=== PATIENT | male | born 1955 | race Caucasian/White ===

== ENCOUNTER 2021-05-05 20:29 | Inpatient (IN) | payer MEDICARE, OTHER ==
[~2021-05-05] VITALS: Ht 180.3 cm; Wt 173.1 kg
[2021-05-05] MEDS ORDERED: ALBUTEROL2.5 MG/3 M INH (22:28)
[2021-05-05] MEDS ORDERED: VITAMIN C 500500 MG PO (22:29)
[2021-05-05] MEDS ORDERED: IPRAT-ALBUT 0.5-3 ML INH (22:29)
[2021-05-05] MEDS ORDERED: LIPITOR20 MG PO (22:30)
[2021-05-05] MEDS ORDERED: ZINC OXIDE60 GM TP (22:31)
[2021-05-05] MEDS ORDERED: VITAMIN B-121000 MC3 GT (22:32)
[2021-05-05] MEDS ORDERED: DEXTROSE 50% SY50 ML INJ (22:33)
[2021-05-05] MEDS ORDERED: FEROSUL325 MG PO (22:34)
[2021-05-05] MEDS ORDERED: COLACE 100MG C100 MG PO (22:34)
[2021-05-05] MEDS ORDERED: HYDRALAZINE HCL50 MG PO (22:35)
[2021-05-05] MEDS ORDERED: HYDROCORT-PRAMO30 G1 PR (22:36)
[2021-05-05] MEDS ORDERED: LEVOTHYROXINE25 MC1 PO (22:37)
[2021-05-05] MEDS ORDERED: ISOSORBIDE MONO30 MG PO (22:37)
[2021-05-05] MEDS ORDERED: MELATONIN3 MG PO (22:39)
[2021-05-05] MEDS ORDERED: CLARITIN10 M2 PO (22:39)
[2021-05-05] MEDS ORDERED: KAPSPARGO SPRIN50 MG PO (22:40)
[2021-05-05] MEDS ORDERED: MONTELUKAST SOD10 MG PO (22:40)
[2021-05-05] MEDS ORDERED: MULTI-VITAMIN1 EACH PO (22:41)
[2021-05-05] MEDS ORDERED: CRANBERRY250 MG PO (22:42)
[2021-05-05] MEDS ORDERED: NYSTATIN15 GM TP (22:42)
[2021-05-05] MEDS ORDERED: SPS15 GM/60 M PO (22:44)
[2021-05-05] MEDS ORDERED: DAKIN'S473 ML MC (22:44)
[2021-05-05] MEDS ORDERED: ALLOPURINOL300 MG PO (22:46)
[2021-05-05] MEDS ORDERED: COZAAR 50MG TAB50 MG GT (22:46)
[2021-05-05 23:08] LABS: HEMOGLOBIN 8.6 gm/dl (14.0-17.5); RED BLOOD COUNT 3.19 M/UL (4.20-5.50); WHITE BLOOD COUNT 8.2 K/UL (4.5-11.0)
[2021-05-06 07:56] LABS: HEMOGLOBIN 8.8 gm/dl (14.0-17.5); RED BLOOD COUNT 3.27 M/UL (4.20-5.50)
[2021-05-07 02:31] LABS: HEMOGLOBIN 8.6 gm/dl (14.0-17.5); RED BLOOD COUNT 3.23 M/UL (4.20-5.50); WHITE BLOOD COUNT 7.6 K/UL (4.5-11.0)
[2021-05-07 20:29] LABS: HEMOGLOBIN 7.4 gm/dl (14.0-17.5)
[2021-05-08 04:53] LABS: HEMOGLOBIN 8.4 gm/dl (14.0-17.5); RED BLOOD COUNT 3.12 M/UL (4.20-5.50)
[2021-05-08 05:01] LABS: WHITE BLOOD COUNT 18.2 K/UL (4.5-11.0)
[2021-05-08 05:19] LABS: HBSAG SCREEN Negative (Negative); HEP A AB, IGM Negative (Negative); HEP B CORE AB, IGM Negative (Negative); HEP C VIRUS AB 0.1 (0.0-0.9)
[2021-05-08 11:38] LABS: HEMOGLOBIN 8.2 gm/dl (14.0-17.5)
[2021-05-08 20:03] LABS: HEMOGLOBIN 8.1 gm/dl (14.0-17.5)
[2021-05-09 05:21] LABS: HEMOGLOBIN 7.9 gm/dl (14.0-17.5); RED BLOOD COUNT 2.93 M/UL (4.20-5.50); WHITE BLOOD COUNT 14.9 K/UL (4.5-11.0)
[2021-05-10 05:04] LABS: HEMOGLOBIN 7.2 gm/dl (14.0-17.5); RED BLOOD COUNT 2.64 M/UL (4.20-5.50); WHITE BLOOD COUNT 11.6 K/UL (4.5-11.0)
[2021-05-11 02:38] LABS: HEMOGLOBIN 7.5 gm/dl (14.0-17.5); RED BLOOD COUNT 2.77 M/UL (4.20-5.50); WHITE BLOOD COUNT 11.1 K/UL (4.5-11.0)
[2021-05-11 11:01] LABS: BODY FLUID SOURCE PLEURAL
[2021-05-11 11:02] LABS: MONONUCLEAR CELLS 82 %; POLYMORPHONUCLEAR 18 %; RBC (AUTOMATED) 6900 10^6; WBC (AUTOMATED) 192 10^3
[2021-05-12 03:17] LABS: HEMOGLOBIN 7.6 gm/dl (14.0-17.5); RED BLOOD COUNT 2.78 M/UL (4.20-5.50); WHITE BLOOD COUNT 10.3 K/UL (4.5-11.0)
[2021-05-12 06:10] LABS: HBSAG SCREEN Negative (Negative); HEPATITIS B SURF AB QUANT <3.1 mIU/mL (Immunity>9.9)
[2021-05-13 03:46] LABS: HEMOGLOBIN 7.6 gm/dl (14.0-17.5); RED BLOOD COUNT 2.81 M/UL (4.20-5.50); WHITE BLOOD COUNT 10.7 K/UL (4.5-11.0)
[2021-05-14 05:23] LABS: HEMOGLOBIN 7.6 gm/dl (14.0-17.5); RED BLOOD COUNT 2.96 M/UL (4.20-5.50)
[2021-05-14 05:37] LABS: WHITE BLOOD COUNT 14.3 K/UL (4.5-11.0)
[2021-05-15 07:33] LABS: HEMOGLOBIN 7.3 gm/dl (14.0-17.5); WHITE BLOOD COUNT 13.5 K/UL (4.5-11.0)
[2021-05-15 07:34] LABS: RED BLOOD COUNT 2.65 M/UL (4.20-5.50)
[2021-05-16 02:58] LABS: HEMOGLOBIN 7.6 gm/dl (14.0-17.5); RED BLOOD COUNT 2.75 M/UL (4.20-5.50); WHITE BLOOD COUNT 12.1 K/UL (4.5-11.0)
[2021-05-17 10:28] LABS: HEMOGLOBIN 7.2 gm/dl (14.0-17.5); RED BLOOD COUNT 2.62 M/UL (4.20-5.50)
[2021-05-17 11:29] LABS: WHITE BLOOD COUNT 8.4 K/UL (4.5-11.0)
[2021-05-18 10:24] LABS: HEMOGLOBIN 7.3 gm/dl (14.0-17.5); RED BLOOD COUNT 2.71 M/UL (4.20-5.50); WHITE BLOOD COUNT 9.7 K/UL (4.5-11.0)
[2021-05-19 02:38] LABS: HEMOGLOBIN 7.1 gm/dl (14.0-17.5); RED BLOOD COUNT 2.6 M/UL (4.20-5.50); WHITE BLOOD COUNT 8.3 K/UL (4.5-11.0)
[2021-05-20 03:26] LABS: HEMOGLOBIN 7.4 gm/dl (14.0-17.5); RED BLOOD COUNT 2.78 M/UL (4.20-5.50); WHITE BLOOD COUNT 12.6 K/UL (4.5-11.0)
[2021-05-21 08:54] LABS: HEMOGLOBIN 7.8 gm/dl (14.0-17.5); RED BLOOD COUNT 2.77 M/UL (4.20-5.50); WHITE BLOOD COUNT 12.4 K/UL (4.5-11.0)
[2021-05-21 15:28] LABS: BODY FLUID SOURCE PLEURAL
[2021-05-21 15:29] LABS: MONONUCLEAR CELLS 89.3 (75-100); POLYMORPHONUCLEAR % 10.7 (0-25); RBC (AUTOMATED) 1600 (0-100000); WBC (AUTOMATED) 112 (0-500)
[2021-05-22 09:42] LABS: WHITE BLOOD COUNT 9.9 K/UL (4.5-11.0)
[2021-05-22 09:43] LABS: RED BLOOD COUNT 2.38 M/UL (4.20-5.50)
[2021-05-22 09:44] LABS: HEMOGLOBIN 6.5 gm/dl (14.0-17.5)
[2021-05-23 03:12] LABS: RED BLOOD COUNT 2.44 M/UL (4.20-5.50)
[2021-05-23 03:20] LABS: HEMOGLOBIN 6.6 gm/dl (14.0-17.5)
[2021-05-24 03:05] LABS: HEMOGLOBIN 8.9 gm/dl (14.0-17.5); RED BLOOD COUNT 3.18 M/UL (4.20-5.50); WHITE BLOOD COUNT 12.5 K/UL (4.5-11.0)
[2021-05-24 16:16] LABS: HEMATOCRIT 21.1 % (37.5-51.0)
[2021-05-25 04:37] LABS: HEMOGLOBIN 8.1 gm/dl (14.0-17.5); RED BLOOD COUNT 2.9 M/UL (4.20-5.50); WHITE BLOOD COUNT 9.6 K/UL (4.5-11.0)
[2021-05-25 17:12] LABS: HEPARIN INDUCED PLATELET AB 0.178 OD (0.000-0.400)
[2021-05-26 04:04] LABS: HEMOGLOBIN 7.6 gm/dl (14.0-17.5); RED BLOOD COUNT 2.87 M/UL (4.20-5.50); WHITE BLOOD COUNT 10.2 K/UL (4.5-11.0)
[2021-05-26 18:22] LABS: ADENOVIRUS F 40/41 Not Detected (Negative); ASTROVIRUS Not Detected (Negative); CAMPYLOBACTER Not Detected (Negative); CLOSTRIDIUM DIFFICILE TOX A/B Not Detected (Negative); CRYPTOSPORIDIUM Not Detected (Negative); E.COLI 0157 Not Detected (Negative); ENTAMOEBA HISTOLYTICA Not Detected (Negative); ENTEROAGGREGATIVE E.COLI (EAEC Not Detected (Negative); ENTEROPATHOGENIC E.COLI (EPEC) Not Detected (Negative); ENTEROTOXIGENIC E.COLI (ETEC) Not Detected (Negative); GIARDIA LAMBLIA Not Detected (Negative); NOROVIRUS GI/GII Not Detected (Negative); PLESIOMONAS SHIGELLOIDES Not Detected (Negative); ROTOVIRUS A Not Detected (Negative); SALMONELLA Not Detected (Negative); SAPOVIRUS Not Detected (Negative); SHIG/ENTEROINVAS.ECOLI (EIEC) Not Detected (Negative); SHIGA-LIK TOX.PRO.E.COLI (STEC Not Detected (Negative); VIBRIO Not Detected (Negative); VIBRIO CHOLERAE Not Detected (Negative); YERSINIA ENTEROCOLITICA Not Detected (Negative)
[2021-05-27 04:33] LABS: WHITE BLOOD COUNT 7.8 K/UL (4.5-11.0)
[2021-05-27 04:34] LABS: HEMOGLOBIN 6.9 gm/dl (14.0-17.5); RED BLOOD COUNT 2.53 M/UL (4.20-5.50)
[2021-05-28 04:10] LABS: HEMOGLOBIN 8.4 gm/dl (14.0-17.5)
[2021-05-28 04:12] LABS: RED BLOOD COUNT 3.12 M/UL (4.20-5.50)
[2021-05-28 12:50] LABS: HEMOGLOBIN 7.7 gm/dl (14.0-17.5)
[2021-05-28 20:36] LABS: HEMOGLOBIN 7.6 gm/dl (14.0-17.5)
[2021-05-29 07:36] LABS: HEMOGLOBIN 7.2 gm/dl (14.0-17.5); RED BLOOD COUNT 2.53 M/UL (4.20-5.50); WHITE BLOOD COUNT 11.4 K/UL (4.5-11.0)
[2021-05-30 03:20] LABS: HEMOGLOBIN 9.1 gm/dl (14.0-17.5); WHITE BLOOD COUNT 9.3 K/UL (4.5-11.0)
[2021-05-30 03:56] LABS: RED BLOOD COUNT 3.21 M/UL (4.20-5.50)
== END 2021-05-30 04:50 | disposition expired | DRG 673 ==
LOC: CCU 20:29 → PROG CARE 20:29 → CCU 05-07 18:31 → PROG CARE 05-09 14:49
PROVIDERS: Internal Medicine; Internal Medicine Nephrology; Registered Nurse; Surgery; ADMIT Internal Medicine
PROC: 5A0935A Assistance with Respiratory Ventilation, Less than 24 Consecutive Hours, High Flow/Velocity Cannula (ICD-10-PCS; 2021-05-06)
PROC: B24BZZ4 Ultrasonography of Heart with Aorta, Transesophageal (ICD-10-PCS; 2021-05-07)
PROC: 0BH17EZ Insertion of Endotracheal Airway into Trachea, Via Natural or Artificial Opening (ICD-10-PCS; 2021-05-07)
PROC: 5A1945Z Respiratory Ventilation, 24-96 Consecutive Hours (ICD-10-PCS; 2021-05-07)
PROC: 0B9P30Z Drainage of Left Pleura with Drainage Device, Percutaneous Approach (ICD-10-PCS; 2021-05-07)
PROC: 3E033XZ Introduction of Vasopressor into Peripheral Vein, Percutaneous Approach (ICD-10-PCS; 2021-05-07)
PROC: 5A1D70Z Performance of Urinary Filtration, Intermittent, Less than 6 Hours Per Day (ICD-10-PCS; 2021-05-07)
PROC: 30233N1 Transfusion of Nonautologous Red Blood Cells into Peripheral Vein, Percutaneous Approach (ICD-10-PCS; principal; 2021-05-07 14:34)
PROC: 0JH63XZ Insertion of Tunneled Vascular Access Device into Chest Subcutaneous Tissue and Fascia, Percutaneous Approach (ICD-10-PCS; 2021-05-07 14:34)
PROC: 5A1D70Z Performance of Urinary Filtration, Intermittent, Less than 6 Hours Per Day (ICD-10-PCS; 2021-05-08)
PROC: 5A1D70Z Performance of Urinary Filtration, Intermittent, Less than 6 Hours Per Day (ICD-10-PCS; 2021-05-09)
PROC: 5A1D70Z Performance of Urinary Filtration, Intermittent, Less than 6 Hours Per Day (ICD-10-PCS; 2021-05-10)
PROC: 5A1D70Z Performance of Urinary Filtration, Intermittent, Less than 6 Hours Per Day (ICD-10-PCS; 2021-05-11)
PROC: 02HV33Z Insertion of Infusion Device into Superior Vena Cava, Percutaneous Approach (ICD-10-PCS; 2021-05-15)
PROC: B548ZZA Ultrasonography of Superior Vena Cava, Guidance (ICD-10-PCS; 2021-05-15)
PROC: 5A09357 Assistance with Respiratory Ventilation, Less than 24 Consecutive Hours, Continuous Positive Airway Pressure (ICD-10-PCS; 2021-05-16)
PROC: 5A1D70Z Performance of Urinary Filtration, Intermittent, Less than 6 Hours Per Day (ICD-10-PCS; 2021-05-21)
PROC: 5A1D70Z Performance of Urinary Filtration, Intermittent, Less than 6 Hours Per Day (ICD-10-PCS; 2021-05-23)
PROC: 5A1D70Z Performance of Urinary Filtration, Intermittent, Less than 6 Hours Per Day (ICD-10-PCS; 2021-05-24)
PROC: 5A1D70Z Performance of Urinary Filtration, Intermittent, Less than 6 Hours Per Day (ICD-10-PCS; 2021-05-26)
PROC: 5A1D70Z Performance of Urinary Filtration, Intermittent, Less than 6 Hours Per Day (ICD-10-PCS; 2021-05-29)
DX: N17.0 Acute kidney failure with tubular necrosis (principal); A41.89 Other specified sepsis; L89.153 Pressure ulcer of sacral region, stage 3; J96.01 Acute respiratory failure with hypoxia; J18.9 Pneumonia, unspecified organism; R53.2 Functional quadriplegia; K57.91 Diverticulosis of intestine, part unspecified, without perforation or abscess with bleeding; J96.02 Acute respiratory failure with hypercapnia; I50.43 Acute on chronic combined systolic (congestive) and diastolic (congestive) heart failure; R65.21 Severe sepsis with septic shock; R57.0 Cardiogenic shock; J98.11 Atelectasis; I13.2 Hypertensive heart and chronic kidney disease with heart failure and with stage 5 chronic kidney disease, or end stage renal disease; E66.2 Morbid (severe) obesity with alveolar hypoventilation; D61.818 Other pancytopenia; D62 Acute posthemorrhagic anemia; J90 Pleural effusion, not elsewhere classified; I47.2 Ventricular tachycardia; E44.0 Moderate protein-calorie malnutrition; Z68.43 Body mass index [BMI] 50.0-59.9, adult; G93.49 Other encephalopathy; L97.829 Non-pressure chronic ulcer of other part of left lower leg with unspecified severity; L97.429 Non-pressure chronic ulcer of left heel and midfoot with unspecified severity; L97.419 Non-pressure chronic ulcer of right heel and midfoot with unspecified severity; Z66 Do not resuscitate; Z51.5 Encounter for palliative care; Z20.822 Contact with and (suspected) exposure to COVID-19; N18.6 End stage renal disease; E11.22 Type 2 diabetes mellitus with diabetic chronic kidney disease; G47.33 Obstructive sleep apnea (adult) (pediatric); K74.60 Unspecified cirrhosis of liver; E11.649 Type 2 diabetes mellitus with hypoglycemia without coma; K75.81 Nonalcoholic steatohepatitis (NASH); E87.5 Hyperkalemia; I48.0 Paroxysmal atrial fibrillation; E87.6 Hypokalemia; E03.9 Hypothyroidism, unspecified; L89.321 Pressure ulcer of left buttock, stage 1; L89.311 Pressure ulcer of right buttock, stage 1; E83.39 Other disorders of phosphorus metabolism; E78.5 Hyperlipidemia, unspecified; D69.6 Thrombocytopenia, unspecified; L89.221 Pressure ulcer of left hip, stage 1; M10.9 Gout, unspecified; E83.51 Hypocalcemia; L89.322 Pressure ulcer of left buttock, stage 2; L89.312 Pressure ulcer of right buttock, stage 2; L89.220 Pressure ulcer of left hip, unstageable; L89.310 Pressure ulcer of right buttock, unstageable; L89.150 Pressure ulcer of sacral region, unstageable; R79.1 Abnormal coagulation profile; I49.5 Sick sinus syndrome; D63.1 Anemia in chronic kidney disease; J44.9 Chronic obstructive pulmonary disease, unspecified; Z87.891 Personal history of nicotine dependence; Z99.81 Dependence on supplemental oxygen; Z86.73 Personal history of transient ischemic attack (TIA), and cerebral infarction without residual deficits; Z82.49 Family history of ischemic heart disease and other diseases of the circulatory system; Z99.2 Dependence on renal dialysis; Z74.01 Bed confinement status; Z79.01 Long term (current) use of anticoagulants; Z95.0 Presence of cardiac pacemaker
CPT/HCPCS: ECHO; 36415; 36430; 36600; 71045; 72220; 74018; 77001; 80048; 80053; 80069; 80074; 80202; 81001; 82140; 82272; 82533; 82550; 82553; 82607; 82728; 82747; 82803; 82962; 83540; 83550; 83605; 83735; 83880; 83921; 84100; 84132; 84439; 84443; 85014; 85018; 85025; 85027; 85610; 85652; 85730; 86140; 86317; 86850; 86900; 86901; 86920; 87040; 87070; 87077; 87086; 87186; 87205; 87340; 87507; 89050; 89051; 90935; 90937; 90947; 92610; 93005; 93306; 94002; 94003; 94640; 94660; 94664; 94760; 97161; 97167; A6212; C1729; C1750; C1752; C1769; C9113; J0295; J0610; J0690; J0696; J1100; J1642; J1644; J2001; J2020; J2185; J2250; J2270; J2370; J2405; J2543; J2704; J2997; J3243; J3370; J7030; J7040; J7050; J7070; J7120; P9016; P9047; Q9967; U0002